=== PATIENT | female | born 1990 | race Caucasian/White ===

== ENCOUNTER 2025-08-12 09:54 | Outpatient (CLI) | payer BC, SELFPAY ==
--- NOTE | ~2025-08-12 | US_ITS ---
EXAM/PROCEDURE: US pelvic complete w TV HISTORY: Menorrhagia COMPARISON: None available. LMP: August 04, 2025 TECHNIQUE: Pelvic ultrasound FINDINGS: The uterus measures 7.8 x 3.8 x 5.3 cm and is retroflexed. Endometrial stripe: 4 mm Right ovary: 2.8 x 2.2 x 2.5 cm Left ovary: 3.1 x 1.2 x 2.0 cm Small simple cysts or follicles seen in both ovaries. Both ovaries otherwise appear normal in echotexture and vascular flow. No free fluid seen. IMPRESSION: Pelvic ultrasound within normal limits. The endometrial stripe is within normal limits for women in the follicular phase of her cycle. Reviewed, dictated and finalized at location A. [facility]
== END 2025-08-12 09:55 | disposition home or self-care (01) ==
LOC: MICIMG 09:56
DX: N92.0 Excessive and frequent menstruation with regular cycle (principal)
CPT/HCPCS: 76830; 76856